=== PATIENT | male | born 1970 | race Hispanic/Latino ===

== ENCOUNTER 2016-05-06 06:02 | Day surgery (SDC) | payer BC ==
[2016-05-05 10:42] VITALS: BMI 31.4
[2016-05-06] MEDS ORDERED: Lactated Ringer's 1,000 ML IV ONE (06:43)
[2016-05-06] MEDS ORDERED: Propofol 10 mg/ml Inj (20 ML) ONE ×2 (07:12→07:53)
[2016-05-06] MEDS ORDERED: Succinylcholine 200 mg/10 ml Inj IV ONE (07:13)
[2016-05-06] MEDS ORDERED: Lidocaine 1% Inj (20ml) ONE (07:32)
[2016-05-06] MEDS ORDERED: Bupivacaine 0.5% Inj(30mL) ONE (07:32)
[2016-05-06] MEDS ORDERED: Midazolam 2 MG/2 ML VIAL ONE (07:33)
[2016-05-06] MEDS ORDERED: Rocuronium 10 mg/ml (5 ml) ONE (08:11)
[2016-05-06] MEDS ORDERED: Desflurane Inhalation Anesthetic Liq (240 ml) ONE (08:34)
[2016-05-06] MEDS ORDERED: Neostigmine Methylsulfate 3mg/3ml Syringe IV ONE (09:17)
[2016-05-06] MEDS ORDERED: Neostigmine Methylsulfate 2 MG/2 ML ML IV ONE (09:17)
[2016-05-06] MEDS: HYDROmorphone 0.5 mg/0.5 ml ISec IVP PRN ×6 (10:20→11:05)
[2016-05-06] MEDS ORDERED: HYDROmorphone 0.5 mg/0.5 ml ISec IVP PRN ×2 (11:20→11:22)
[2016-05-06] MEDS ORDERED: Oxycodone/Acetaminophen 5/325 mg Tab PO PRN (12:09)
--- NOTE | 2016-05-06 12:12 | PCM.SURG1 ---
Surgeon's Initial Post Op Note - Surgeon's Notes Surgeon: abdirizak Bb Shot Packer: Pranav Mcneal Type of Anesthesia: General Endo Pre-Operative Diagnosis: Right distal triceps tear Operative Findings: see dictation Post-Operative Diagnosis: same Operation Performed: distal triceps repair Specimen/Specimens Removed: none Estimated Blood Loss: EBL {In ML}: 0 Date of Surgery/Procedure: 05/06/16 Time of Surgery/Procedure: 09:00
--- NOTE | 2016-05-06 21:46 | OP ---
PROCEDURE DATE: 05/06/2016 SURGEON: Prince Duncan MD CO-SURGEON: Sheridan Mcneal MD STRAW HAT BRUSHER: Ana Paula Paulino PA-C PREOPERATIVE DIAGNOSIS: Right full thickness distal triceps tear. POSTOPERATIVE DIAGNOSIS: Right full thickness distal triceps tear. PROCEDURES: 1. Right distal triceps repair with Arthrex suture anchors, double row technique. 2. Right triceps tenolysis, scar tissue removal and adhesion removal. ESTIMATED BLOOD LOSS: 0. SPECIMENS: None. COMPLICATIONS: None. ANESTHESIA: General anesthesia and right scalene block. DISPOSITION: Stable to recovery room. OPERATIVE FINDINGS: A 4 cm displaced distal triceps tendon tear with retraction and scar tissue formation. INDICATIONS: This is a 46-year-old right-hand dominant active male who sustained a fall and he ruptured his triceps. The patient was initially treated conservatively; however, continued to have pain, discomfort and weakness of the triceps. 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 The risks and benefits of the procedure were explained. The risks included, but not limited to bleeding, infection, tendon, nerve or vessel injury, instability, chronic pain, potential need for additional surgery in the future, stiffness. The patient understood the above risks and elected to proceed. Informed consent was obtained. DESCRIPTION OF PROCEDURE: The patient was brought into the operating room and placed supine on the operating room table. After administration of general anesthesia, and upper extremity block, the patient was placed into a lateral decubitus position. Prophylactic antibiotics were given. The right upper extremity was then prepped and draped in standard surgical fashion. A sterile tourniquet was placed on the right upper extremity and the tourniquet was inflated. A timeout was performed and a straight midline incision over the posterior elbow was outlined with medial curvature over the olecranon area. An incision was made through the skin with a scalpel. Deep dissection was carried down with dissecting scissors. The olecranon bursa was identified and excised. Deep to the olecranon bursa there was a full-thickness tear of the distal triceps muscle. The olecranon tip was exposed. The periosteum was sharply incised and the olecranon tip was decorticated with a rongeur and a high speed bur. The triceps tendon was then identified and was shown to be markedly retracted about 4 cm to 5 cm with extensive scar tissue formation. The paratenon was incised and tenolysis of the tendon was performed with release of the scar tissue. The ulnar nerve was identified and protected throughout the whole procedure. The edge of the tendon was cleaned to good healthy tissue. Two Allis clamps were then placed on the tendon and with traction pulled to bring the tendon out to length. The tendon had good excursion and was able to align well to its anatomic footprint. The tendon was then again debrided. Work was begun on repairing the tendon. Two #2 FiberWire sutures were placed in a running locking Krackow stich up and down the tendon stump thus forming a stable construct with 4 free suture limbs exiting the tendon. We then placed 2 SwiveLock anchors over the proximal olecranon reconstructing the medial roll attachment site. The free suture limbs from the anchors were then passed in a horizontal mattress through the tendon. This was repeated both on the medial and lateral side of the tendon. Then, with traction and extension of the elbow , the tendon was placed back into its anatomic footprint and secured to the anchors by tying the horizontal mattress sutures. After this, a cross bridge technique was done to construct the lateral roll. The sutures limbs from the medial and the lateral side were matt crossed and placed into lateral row with 2 SwiveLock anchors. This constructed a stable construct with double row technique. There was no tendon gapping at repair site with flexion and extension of the elbow. The sutures were then cut short. The wound was copiously irrigated and the wound was closed with 2-0 Vicryl sutures followed by nigel. A sterile dressing was applied consisting of fluffs, 4 x 4s, and a plaster splint leaving the elbow in 30 degrees of flexion. The patient tolerated the procedure well and returned to the recovery room in excellent condition. Sheridan Mcneal is a fellowship trained orthopedic surgeon who is the cosurgeon and assisted me throughout the entirety of the case. His expertise was needed for fixation of the triceps tendon. Ana Paula Paulino is a certified PA who assisted me throughout the case. Her assistance was needed for proper patient positioning, retraction and protection of critical neurovascular bundles. Sharri Duncan M.D. cc: [id number] TT: 05/06/2016 21:45:31 dn RENETTA
[2016-05-07 16:00] VITALS: RESP 18
[2016-05-07 16:04] VITALS: BP 142/86; PULSE 68; TEMP 97.8; O2SAT 98
--- NOTE | 2016-05-09 09:09 | PCM.ANESB4 ---
Infraclavicular Block - Femoral Nerve Block Date of Procedure: 05/06/16 Anesthesiologist: selina Pre-Procedure Diagnosis: right triceps tear Post-Procedure Diagnosis: same Procedure Performed: Brachial Plexus at the Infraclavicular area Right - Procedure Infraclavicular Block: The procedure was explained to the patient that it is for the post-operative pain management. Consent was obtained after a thorough discussion with the patient regarding the benefits and possible complications of local anesthetic block of the brachial plexus at the infraclavicular area. The patient was brought to the operating room and standard monitors were applied. Time-out was held with the circulating nurse to confirm the correct surgery and the appropriate block. After applying oxygen by nasal cannula and administering IV Sedation, patient's head was gently rotated away from the operative _right _ shoulder and the area superior to the clavicle was carefully palpated. The ultrasound transducer was then applied to the skin in the transverse plane and the brachial plexus was visualized surrounding the subclavian artery After thorough identification, this area was prepped with Betadine solution three times and 1 % Lidocaine was injected subcutaneously for topical anesthesia. At this point, a #21 gauge Stimuplex 4-inch needle was inserted cephalad to the ultrasound transducer and superior to the clavicle in-plane towards the superior aspect of the artery. Needle advancement was performed carefully under ultrasound visualization. Nerve stimulator was used and twitch of the affected extremity including fingers, hand, wrist and elbow was obtained at current of __ 2.0___MA. After repeated negative aspiration, _1____cc of __0.5___% __ ropivicaine was injected and this was followed with _19 cc of _0.5 % _ropivicaine . Under ultrasound guidance the local anesthetics were observed surrounding the cords of the brachial plexus. The needle was removed intact and sterile dressing was applied. The patient had stable vital signs, was conscious and in no apparent distress. The patient had no paresthesia. The patient tolerated the supraclavicular block of the brachial plexus well with stable vital signs was prepared for subsequent surgery.
== END 2016-05-06 16:30 | disposition home or self-care (01) ==
LOC: H.OPSURG 06:02
PROVIDERS: ATTEND Orthopaedic Surgery
DX: S46.311A Strain of muscle, fascia and tendon of triceps, right arm, initial encounter (principal); W19.XXXA Unspecified fall, initial encounter; Y93.89 Activity, other specified
CPT/HCPCS: 24332; 24341; C1713; J0330; J0690; J1170; J1885; J2001; J2250; J2405; J2704; J2710; J3010; J7120